=== PATIENT | male | born 1950 | race Caucasian/White ===

== ENCOUNTER 2020-09-07 16:19 | Inpatient (IN) | payer MEDICARE, BC ==
[~2020-09-07] VITALS: Ht 175.3 cm; Wt 77.7 kg
--- NOTE | 2020-09-07 16:33 | NUR ---
CAME IN FOR CHEST TIGHTNESS/PRESSURE, NON-RADIATING, CONTINUOUSLY WITH DEEP BREATHING SINCE 0700 TODAY. DENIES SOB, DIZZINESS, N/V, ARM/JAW PAIN AT THIS TIME. TO ER BED 9, HOOKED TO PERSONAL LINES ACCOUNT MANAGER, BP CUFF AND POX. CHANGED TO HOSP GOWN, WARM BLANKET PROVIDED, PATIENT AAO x 4, BREATHING EVEN AND UNLABORED, NAD NOTED. AWAITING MD MARTIN.
--- NOTE | 2020-09-07 16:44 | NUR ---
DR CARTWRIGHT AT [facility]
[2020-09-07 17:26] LABS: CALCIUM, SERUM 9.2 mg/dL (8.5-10.1); CREATININE 1.1 mg/dL (0.6-1.3); POTASSIUM 3.8 mmol/L (3.5-5.1)
[2020-09-07 18:09] LABS: BASOPHILS % (AUTO) 0.6 % (0.0-2.0); HEMATOCRIT 43 % (39-51); LYMPHOCYTES # (AUTO) 1.9 /CMM (0.8-4.8); LYMPHOCYTES % (AUTO) 37.2 % (20.0-44.0); MEAN CORPUSCULAR HGB CONC 35 g/dl (31.0-36.0); MEAN CORPUSCULAR VOLUME 95 fL (80-96); MONOCYTES # (AUTO) 0.4 /CMM (0.1-1.30); MONOCYTES % (AUTO) 8.4 % (2.0-12.0); NEUTROPHILS # (AUTO) 2.7 /CMM (1.8-8.9); NEUTROPHILS % (AUTO) 52.8 % (43.0-81.0); PLATELET COUNT (AUTO) 213 /CMM (150-450); RED BLOOD CELL COUNT(AUTO) 4.57 MIL/uL (4.5-6.0); WHITE BLOOD COUNT (AUTO) 5.1 K/uL (4.3-11.0)
--- NOTE | 2020-09-07 18:24 | NUR ---
followed up with lab regarding cbc result
[2020-09-07] MEDS ORDERED: ASPIRIN 81 MG TAB.CHEW PO ONE (18:30)
[2020-09-07] MEDS ORDERED: ENOXAPARIN SODIUM 60 MG/0.6 ML DISP.SYRIN SQ ONE (18:30)
[2020-09-07] MEDS ORDERED: IV NS 0.9% 250 ML IV ONE (18:35)
[2020-09-07] MEDS ORDERED: IOHEXOL-350 100 ML VIAL IV ONE (18:35)
[2020-09-07] MEDS ORDERED: ASPIRIN 81 MG TAB.CHEW ONE (18:43)
[2020-09-07] MEDS ORDERED: ENOXAPARIN SODIUM 80 MG/0.8 ML DISP.SYRIN SQ ONE (18:43)
--- NOTE | 2020-09-07 18:47 | NUR ---
PANEL ON-CALL PAGED
--- NOTE | 2020-09-07 18:48 | NUR ---
PICKED UP BY [employer] VIA [facility] FOR [facility]
[2020-09-07] MEDS ORDERED: IV NS 0.9% 1,000 ML IV ONE ×2 (19:00→21:30)
--- NOTE | 2020-09-07 19:18 | NUR ---
REPORT GIVEN TO ANEUDY BARRETT FOR MIRIAM
--- NOTE | 2020-09-07 19:41 | NUR ---
PATIENT AMBULATED TO THE RESTROOM WITH A STEADY GAIT.
--- NOTE | 2020-09-07 20:01 | NUR ---
DARLYN MEADOWS TALKING TO DR. HASTINGS REGARDING PT ADMISSION.
--- NOTE | 2020-09-07 20:13 | NUR ---
COVID SWAB COLLECTED AND SENT TO THE LAB.
--- NOTE | 2020-09-07 21:11 | NUR ---
negative covid per lab
[2020-09-07] MEDS ORDERED: Z GUARD REMEDY 2 OZ OINT TP PRN (21:30)
[2020-09-07] MEDS ORDERED: MAGNESIUM HYDROXIDE 30 ML UDC PO PRN (21:30)
[2020-09-07] MEDS ORDERED: HYDROCODONE/APAP 5/325MG TABLET PO PRN (21:30)
[2020-09-07] MEDS ORDERED: ZOLPIDEM TARTRATE 5 MG TABLET PO PRN (21:30)
[2020-09-07] MEDS ORDERED: ACETAMINOPHEN 325 MG TABLET PO PRN (21:30)
[2020-09-07] MEDS ORDERED: MAG HYDROX/AL HYDROX/SIMETH 30 ML UDC PO PRN (21:30)
[2020-09-07] MEDS ORDERED: ONDANSETRON HCL/PF 4 MG/2 ML VIAL IVP PRN (21:30)
--- NOTE | 2020-09-07 21:35 | NUR ---
TELE 322-2
--- NOTE | 2020-09-07 21:47 | NUR ---
REPORT GIVEN TO DARBY BARRETT FOR MIRIAM.
--- NOTE | 2020-09-07 22:06 | NUR ---
PATIENT TAKEN TO ASSIGNED ROOM FOR MIRIAM.
[2020-09-07 22:45] VITALS: BP 110/73
--- NOTE | 2020-09-07 23:00 | NUR ---
TELE/RN OPENING NOTES RECEIVED PATIENT IN BED FROM ER. PATIENT SUSTAINED NO INJURIES DURING TRANSPORT. PATIENT WAS ABLE TO AMBULATE TO BED BY SELF. PATIENT IS ALERT AND ORIENTED X 4. PATIENTS BREATHING IS EVEN AND UNLABORED. NO SIGNS OF SOB OR RESPIRATORY DISTRESS NOTED. PATIENT STATES NO PAIN AT THIS TIME, PATIENT DENIES CHEST PAIN. PATIENT SKIN IS INTACT. PATIENT SIGNED BELONGINGS LIST. V/S ARE WNL. SAFETY MEASURES ARE IN PLACE, BED IS LOCKED AND PLACED IN THE LOW POSITION, SIDE RAILS UP X 2, CALL LIGHT WITHIN REACH. WILL CONTINUE TO MONITOR THROUGH OUT SHIFT.
[2020-09-08 00:06] VITALS: BP 100/62
[2020-09-08 04:00] VITALS: BP 114/75
--- NOTE | 2020-09-08 06:35 | NUR ---
TELE/RN CLOSING NOTES PATIENT IN BED RESTING. PATIENT IS ALERT AND ORIENTED X 4. PATIENT HAS IV ACCESS ON RIGHT AC #18 RUNNING NS AT 75 ML/HR. ALL NEEDS HAVE BEEN MET DURING SHIFT. SAFETY MEASURES ARE IN PLACE, BED IS LOCKED AND PLACED IN THE LOW POSITION, SIDE RAILS UP X 2, CALL LIGHT IS WITHIN REACH. WILL ENDORSE CARE TO DAY SHIFT NURSE.
[2020-09-08 08:00] VITALS: BP 115/58
[2020-09-08 08:05] LABS: BASOPHILS % (AUTO) 0.6 % (0.0-2.0); EOSINOPHILS % (AUTO) 1.3 % (0.0-6.0); HEMATOCRIT 41 % (39-51); HEMOGLOBIN 14.2 g/dL (13.5-17.5); LYMPHOCYTES # (AUTO) 1.4 /CMM (0.8-4.8); LYMPHOCYTES % (AUTO) 35.4 % (20.0-44.0); MEAN CORPUSCULAR HGB CONC 35 g/dl (31.0-36.0); MEAN CORPUSCULAR VOLUME 94 fL (80-96); MONOCYTES # (AUTO) 0.4 /CMM (0.1-1.30); MONOCYTES % (AUTO) 8.8 % (2.0-12.0); NEUTROPHILS # (AUTO) 2.2 /CMM (1.8-8.9); NEUTROPHILS % (AUTO) 53.9 % (43.0-81.0); PLATELET COUNT (AUTO) 187 /CMM (150-450); RED BLOOD CELL COUNT(AUTO) 4.35 MIL/uL (4.5-6.0); WHITE BLOOD COUNT (AUTO) 4.1 K/uL (4.3-11.0)
--- NOTE | 2020-09-08 08:15 | NUR ---
ORE FIELDER OPENING NOTE PATIENT IS IN BED RESTING. PATIENT IS IN NO ACUTE DISTRESS. NO SOB NOTED. PATIENT IS ON ROOM AIR. PATIENT IS AWAKE AND STABLE. PATIENT IS ON TELE MONITOR READING SR 63. SAFETY PRECAUTIONS ARE IN PLACE. BED IS LOCKED AND IN THE LOWEST POSITION. SIDE RAILS ARE UP, CALL LIGHT WITHIN REACH. WILL CONTINUE TO MONITOR THROUGH OUT THE SHIFT.
[2020-09-08 08:20] LABS: CALCIUM, SERUM 8.7 mg/dL (8.5-10.1); CREATININE 0.9 mg/dL (0.6-1.3); MAGNESIUM 2.2 mg/dL (1.8-2.4); PHOSPHORUS 3.5 mg/dL (2.5-4.9); POTASSIUM 3.9 mmol/L (3.5-5.1)
[2020-09-08] MEDS ORDERED: FAMO20TA8 PO (08:42)
[2020-09-08] MEDS ORDERED: ATOR10TA PO (08:42)
[2020-09-08] MEDS ORDERED: OMEP20CA15 PO (08:42)
[2020-09-08] MEDS ORDERED: TRIA1TAB3 PO (08:42)
[2020-09-08] MEDS: ASPIRIN EC 81 MG TABLET.DR PO SCH (08:57)
--- NOTE | 2020-09-08 19:42 | NUR ---
MS RN CLOSING NOTE PATIENT IS IN BED RESTING. PATIENT IS IN NO ACUTE DISTRESS. NO SOB NOTED. PATIENT IS ON ROOM AIR. PATIENT IS ON TELE MONITOR READING SR 67. PATIENT IS AWAKE AND STABLE. SAFETY PRECAUTIONS ARE IN PLACE. BED IS LOCKED AND IN THE LOWEST POSITION. SIDE RAILS ARE UP, CALL LIGHT WITHIN REACH. ENDORSE PATIENT TO PAINT TRIMMER PIPE BOWLS NURSE FOR MIRIAM.
[2020-09-08 21:27] VITALS: BP 135/64
[2020-09-09 00:33] VITALS: BP 136/86
[2020-09-09 04:32] VITALS: BP 103/65
[2020-09-09 06:48] LABS: BASOPHILS % (AUTO) 0.6 % (0.0-2.0); EOSINOPHILS % (AUTO) 1.7 % (0.0-6.0); HEMATOCRIT 41 % (39-51); HEMOGLOBIN 14.2 g/dL (13.5-17.5); LYMPHOCYTES # (AUTO) 1.7 /CMM (0.8-4.8); LYMPHOCYTES % (AUTO) 35.5 % (20.0-44.0); MEAN CORPUSCULAR HGB CONC 34 g/dl (31.0-36.0); MEAN CORPUSCULAR VOLUME 94 fL (80-96); MONOCYTES # (AUTO) 0.4 /CMM (0.1-1.30); MONOCYTES % (AUTO) 8.7 % (2.0-12.0); NEUTROPHILS # (AUTO) 2.5 /CMM (1.8-8.9); NEUTROPHILS % (AUTO) 53.5 % (43.0-81.0); PLATELET COUNT (AUTO) 191 /CMM (150-450); RED BLOOD CELL COUNT(AUTO) 4.37 MIL/uL (4.5-6.0); WHITE BLOOD COUNT (AUTO) 4.7 K/uL (4.3-11.0)
--- NOTE | 2020-09-09 07:09 | NUR ---
MS/TELE/RN PATIENT IS AWAKE, WATCHING TV, COMFORTABLE , NO DISTRESS NOTED, ALL NEEDS ATTENDED AT THIS TIME, WILL CONTINUE TO MONITOR.
[2020-09-09 07:16] LABS: CALCIUM, SERUM 8.9 mg/dL (8.5-10.1); MAGNESIUM 2.1 mg/dL (1.8-2.4); PHOSPHORUS 3.1 mg/dL (2.5-4.9); POTASSIUM 4.2 mmol/L (3.5-5.1)
[2020-09-09 08:00] VITALS: BP 102/70
--- NOTE | 2020-09-09 08:00 | NUR ---
GEAR STRAIGHTENER OPENING NOTE PATIENT IS IN BED RESTING. PATIENT IS IN NO ACUTE DISTRESS. NO SOB NOTED. PATIENT IS ON ROOM AIR. PATIENT IS AWAKE AND STABLE. PATIENT IS ON TELE MONITOR READING SR 67. SAFETY PRECAUTIONS ARE IN PLACE. BED IS LOCKED AND IN THE LOWEST POSITION. SIDE RAILS ARE UP, CALL LIGHT WITHIN REACH. WILL CONTINUE TO MONITOR
[2020-09-09] MEDS: ASPIRIN EC 81 MG TABLET.DR PO SCH (08:59)
[2020-09-09] MEDS ORDERED: ASPI-1420 PO (10:03)
[2020-09-09 12:00] VITALS: BP 106/70
--- NOTE | 2020-09-09 15:20 | NUR ---
DISCHARGED HOME WITH STABLE V/S.DENIES ANY CHEST PAIN OR DISTRESS.DISCHARGE INSTRUCTIONS GIVEN AND INSTRUCTED TO FOLLOW UP WITH PRIMARY DOCTOR IN 1-2 WEEKS.IV H/L REMOVED TO RT AC WITH NO BLEEDING NOTED.
== END 2020-09-09 15:25 | disposition home or self-care (01) | DRG 206 ==
LOC: ER 16:26 → TELE 21:42
PROVIDERS: ADMIT Family Medicine; ATTEND Registered Nurse
DX: M94.0 Chondrocostal junction syndrome [Tietze] (principal); I20.0 Unstable angina; K21.9 Gastro-esophageal reflux disease without esophagitis; E86.9 Volume depletion, unspecified; Z20.822 Contact with and (suspected) exposure to COVID-19; I10 Essential (primary) hypertension; R73.03 Prediabetes; E78.5 Hyperlipidemia, unspecified; H26.9 Unspecified cataract; Z82.49 Family history of ischemic heart disease and other diseases of the circulatory system; Z83.3 Family history of diabetes mellitus
CPT/HCPCS: 36415; 71045-TC; 80048-TC; 80061-TC; 83735-TC; 84100-TC; 84484-TC; 85025-TC; 85378-TC; 87081-TC; 93307-TC; C9803; G0378; J1650; J7030; J7050; Q9967